=== PATIENT | male | born 1995 | race Two or more races ===

== ENCOUNTER 2024-09-24 17:39 | Emergency (ER) | payer OTHER ==
[~2024-09-24] VITALS: Ht 198.1 cm; Wt 117.9 kg
[2024-09-24 20:45] LABS: HEMATOCRIT 42.5 % (39.0-48.0); HEMOGLOBIN 14.3 g/dL (13-16.00); MEAN CELL VOLUME 92.7 fL (80.0-100.00); MEAN CORPUSCULAR HEMOGLOBIN 31.1 pg (27.00-32.0); MEAN CORPUSCULAR HGB CONC 33.5 g/dl (32.0-36.0); PLATELET COUNT 235 K/uL (150-450); RED BLOOD COUNT 4.59 M/uL (4.00-6.00); RED CELL DISTRIBUTION WIDTH 13.6 % (11.5-14.5)
[2024-09-24] MEDS ORDERED: GILTUSS COUGH-118 M1 PO (23:14)
[2024-09-24] MEDS ORDERED: ACETAMINOPHEN500 M1 PO (23:14)
== END 2024-09-24 23:59 | disposition home or self-care (01) ==
LOC: ER 17:42
PROVIDERS: Preventive Medicine Public Health & General Preventive Medicine
DX: J06.9 Acute upper respiratory infection, unspecified (principal); Z20.822 Contact with and (suspected) exposure to COVID-19; Z88.0 Allergy status to penicillin; Z91.013 Allergy to seafood